=== PATIENT | male | born 1995 | race African-American/Black ===

== ENCOUNTER 2019-06-30 20:31 | Emergency (ER) | payer SELFPAY ==
[~2019-06-30] VITALS: Ht 188 cm; Wt 59.0 kg
[2019-06-30 20:38] VITALS: BP 114/64
--- NOTE | 2019-06-30 20:41 | NUR ---
PT AMBULATED TO BED 7.
--- NOTE | 2019-06-30 21:02 | NUR ---
23 Y/O FEMALE PRESENTS TO ED, C/O SORE THROAT X1 DAY AND TRIPP X5 DAYS. PT IS ALERT TO PERSON PLACE AND TIME. PT STATES PAIN IS 10/10. C/O DIFFICULTY TALKING DUE TO PAIN. NO SOB NOTED. PT TOOK ALEVE YESTERDAY BUT WAS INEFFECTIVE. PT DENIES ANY DIZZINESS. 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 PT PRESENTS DIAPHORETIC. PT VSS. ERMD AWARE. WILL CONTINUE TO MONITOR.
--- NOTE | 2019-06-30 22:28 | NUR ---
Dr. Felix examining patient.
--- NOTE | 2019-06-30 22:39 | NUR ---
PT LAYING ON BED, GIRLFRIEND AT BEDSIDE. C/O TRIPP AND SORETHROAT 08/02. ERMD AWARE. WILL CONTINUE TO MONITOR.
[2019-06-30] MEDS ORDERED: LIDOCAINE VISCOUS 2% 20 ML UDC PO ONE (22:50)
[2019-06-30] MEDS ORDERED: KETOROLAC 15 MG/ML VIAL IM ONE (22:50)
[2019-06-30] MEDS ORDERED: DEXAMETHASONE 4 MG/ML VIAL PO ONE (22:50)
[2019-06-30] MEDS ORDERED: AMOXICILLIN 500 MG CAP PO ONE (22:50)
[2019-06-30 23:11] VITALS: BP 121/66
--- NOTE | 2019-06-30 23:14 | NUR ---
PT DISCHARGED WITH PAPERWORK. RX AMOXICILLIN. EDUCATED PT REGARDING MEDICATION AND S/E. EDUCATED PT REGARDING D/C DIAGNOSIS AND INSTRUCTIONS. PT VERBALIZED UNDERSTANDING OF TEACHING. TOLD PT'S MOTHER TO FOLLOW UP WITH PCP AND WHEN TO RETURN TO ED. PT VSS. ALL QUESTIONS ANSWERED.
== END 2019-06-30 23:15 | disposition home or self-care (01) ==
LOC: MED 20:31
DX: J02.9 Acute pharyngitis, unspecified (principal); J45.909 Unspecified asthma, uncomplicated; Z91.018 Allergy to other foods
CPT/HCPCS: 87081; 96372; 99284; J1100; J1885

== ENCOUNTER 2021-03-02 11:40 | Emergency (ER) | payer MEDICAID ==
[~2021-03-02] VITALS: Ht 188 cm; Wt 60.8 kg
[2021-03-02 11:48] VITALS: BP 143/91
--- NOTE | 2021-03-02 11:54 | NUR ---
Pt ambulated to ER bed 2.
--- NOTE | 2021-03-02 11:59 | NUR ---
25 Y/O MALE C/O SOB, CHEST PAIN 04/02 DESCRIBES PRESSURE-LIKE PAIN RADIATING TO LEFT ARM [id number]. PT STATES HE HAS NOT TAKEN HIS ALBUTEROL OR PREDNISONE FOR "A WHILE" BECAUSE HE DIDN'T NEED IT. LUNGS CLEAR TO AUSCULTATION BILATERALLY, SYMMETRICAL LABORED BREATHING NOTED, SPO2 100% ON RA. PMH: ASTHMA ALLERGIES: KIWI
--- NOTE | 2021-03-02 13:21 | NUR ---
Dr. Walsh is evaluating the patient at bedside.
--- NOTE | 2021-03-02 13:23 | NUR ---
EKG given to Dr. Walsh, states it is not an active OH. No further interventions at this time.
--- NOTE | 2021-03-02 13:36 | NUR ---
news gathering technician at pt bedside.
--- NOTE | 2021-03-02 13:45 | NUR ---
registered veterinary technician at bedside.
[2021-03-02 13:46] LABS: BASOPHILS % (AUTO) 0.9 % (0.0-2.0); EOSINOPHILS # (AUTO) 0.1 K/uL (0-0.4); EOSINOPHILS % (AUTO) 1.2 % (0.0-4.0); HEMATOCRIT 43.1 % (36-52); HEMOGLOBIN 14.4 g/dL (12.0-18.0); LYMPHOCYTES # (AUTO) 1.3 K/uL (2.0-11.5); LYMPHOCYTES % (AUTO) 30.6 % (20.5-51.1); MEAN CORPUSCULAR HEMOGLOBIN 28 pg (27-31); MEAN CORPUSCULAR HGB CONC 33 g/dL (33-37); MEAN CORPUSCULAR VOLUME 82.9 fL (80-94); MONOCYTES # (AUTO) 0.5 K/uL (0.8-1.0); MONOCYTES % (AUTO) 10.6 % (1.7-9.3); NEUTROPHILS # (AUTO) 2.4 K/uL (1.8-7.7); NEUTROPHILS % (AUTO) 56.7 % (42.2-75.2); PLATELET COUNT (AUTO) 293 K/uL (140-450); RED CELL DISTRIBUTION WIDTH 13.3 % (11.6-13.7); WHITE BLOOD COUNT (AUTO) 4.3 K/uL (4.8-10.8)
[2021-03-02 14:28] LABS: PROTHROMBIN TIME 10.7 secs (10.8-13.4)
[2021-03-02 14:39] LABS: ANION GAP 11.6 (8-16); CARBON DIOXIDE 27.5 mmol/L (21-32); CREATININE 0.9 mg/dL (0.6-1.3); POTASSIUM 4.1 mmol/L (3.5-5.1)
[2021-03-02 14:40] LABS: ALBUMIN 2.9 g/dL (3.4-5.0); TOTAL BILIRUBIN 0.4 mg/dL (0.0-1.0)
[2021-03-02] MEDS ORDERED: ALBU0.0912 INH (15:27)
[2021-03-02 15:43] VITALS: BP 143/91
--- NOTE | 2021-03-02 15:44 | NUR ---
Patient discharged with v/s stable. Written and verbal after care instructions given FOR PALPITATIONS and explained. Patient alert, oriented and verbalized understanding of instructions. Ambulatory with steady gait. All questions addressed prior to discharge. ID band removed. Patient advised to follow up with PMD. Rx of ALBUTEROL 2 PUFFS Q4-6H PRN SOB given. Patient educated on indication of medication including possible reaction and side effects. Opportunity to ask questions provided and answered.
== END 2021-03-02 15:44 | disposition home or self-care (01) ==
LOC: MED 11:40
DX: R00.2 Palpitations (principal); R06.00 Dyspnea, unspecified; J45.909 Unspecified asthma, uncomplicated; F17.210 Nicotine dependence, cigarettes, uncomplicated; Z91.018 Allergy to other foods; Z79.899 Other long term (current) drug therapy
CPT/HCPCS: 36415; 71045; 80053; 83880; 84484; 85025; 85610; 85730; 93005; 99285

== ENCOUNTER 2021-04-03 17:29 | Emergency (ER) | payer MEDICAID ==
[~2021-04-03] VITALS: Ht 188 cm; Wt 60.8 kg
[~2021-04-03 17:29] MED LIST: ALBU0.0912 INH
[2021-04-03 17:44] VITALS: BP 103/63
--- NOTE | 2021-04-03 17:52 | NUR ---
PT AMBULATED TO BED 12
--- NOTE | 2021-04-03 18:04 | NUR ---
25 YEAR OLD MALE COMPLAINS OF LIGHTHEAD AND DIZZINESS X 3 DAYS. PT STATES HE ALSO HAS ON/OFF CHEST PAIN. PT DENIES NAUSEA, VOMITTING. PT DENIES FALLING OR LOC. PT AOX4, BREATHING EVEN AND UNLABORED, SKIN WARM AND DRY. BED IN LOWEST POSITION, LOCKED, BED RAIL UPX1. PMH - ASTHMA ALLERGIES - NKA
[2021-04-03] MEDS ORDERED: IBUP-2213 PO (18:16)
[2021-04-03] MEDS ORDERED: ATA25 PO (18:16)
[2021-04-03 18:22] VITALS: BP 103/63
--- NOTE | 2021-04-03 18:23 | NUR ---
Patient discharged with v/s stable. Written and verbal after care instructions about chest wall pain given and explained. Patient alert, oriented and verbalized understanding of instructions. Ambulatory with steady gait. All questions addressed prior to discharge. ID band removed. Patient advised to follow up with PMD. Rx of ibuprofen, atarax given. Patient educated on indication of medication including possible reaction and side effects. Opportunity to ask questions provided and answered.
== END 2021-04-03 18:23 | disposition home or self-care (01) ==
LOC: MED 17:29
DX: R42 Dizziness and giddiness (principal); R07.89 Other chest pain; R06.02 Shortness of breath; J45.909 Unspecified asthma, uncomplicated; Z79.899 Other long term (current) drug therapy; Z91.018 Allergy to other foods
CPT/HCPCS: 99283